=== PATIENT | female | born 1970 | race Caucasian/White ===

== ENCOUNTER 2020-01-13 18:19 | Inpatient (IN) | payer OTHER ==
[2020-01-13 18:29] VITALS: BMI 37.8
[2020-01-13] MEDS ORDERED: ACETAMINOPHEN 1000 MG/100 ML VIAL (NON FORMULARY) IVPB ONE (19:25)
[2020-01-13 20:29] LABS: BASO % 0.6 % (0-2.0); EOS % 1.3 % (0-4.5); HEMATOCRIT 30.5 % (32.4-45.2); HEMOGLOBIN 10.4 GM/dL (10.7-15.3); LYMPH % 16.4 % (8-40); MCH 30.4 pg (25.7-33.7); MEAN CELL VOLUME 89.5 fl (80-96); MEAN PLT VOLUME 8.7 fl (7.5-11.1); MONO % 5.5 % (3.8-10.2); NEUT % 76.2 % (42.8-82.8); PLATELET COUNT 250 K/MM3 (134-434); RBC 3.41 M/mm3 (3.60-5.2); RDW 13.5 % (11.6-15.6); WHITE BLOOD COUNT 8.1 K/mm3 (4.0-10.0)
[2020-01-13 20:45] LABS: INR 0.96 (0.83-1.09); PROTHROMBIN TIME (PATIENT) 11.8 SEC (9.7-13.0)
[2020-01-13 20:48] LABS: ACTIVATED PTT 30.5 SECONDS (25.2-36.5)
[2020-01-13 20:50] LABS: CHLORIDE 111 mmol/L (98-107); SODIUM 142 mmol/L (136-145)
[2020-01-13 20:52] LABS: ALBUMIN 3.5 g/dl (3.4-5.0); ANION GAP 5 MMOL/L (8-16); BLOOD UREA NITROGEN 11.1 mg/dL (7-18); CALCIUM 8.3 mg/dL (8.5-10.1); CO2 25 mmol/L (21-32); GLUCOSE,RANDOM 94 mg/dL (74-106)
[2020-01-13 20:55] LABS: SGOT/AST 15 U/L (15-37); SGPT/ALT 23 U/L (13-61)
[2020-01-13 20:56] LABS: CREATININE 0.7 mg/dL (0.55-1.3)
[2020-01-13 20:57] LABS: BILIRUBIN,TOTAL 0.2 mg/dL (0.2-1)
[2020-01-13 20:58] LABS: ALK PHOS 57 U/L (45-117)
[2020-01-13] MEDS ORDERED: LACTATED RINGERS SOLUTION 1000 ML INFUS.BAG IV ONE (21:58)
[2020-01-13] MEDS ORDERED: PROPOFOL 20 ML ONE (23:22)
[2020-01-13] MEDS ORDERED: MIDAZOLAM HCL 2 MG/2 ML SINGLE DOSE VIAL ONE (23:22)
[2020-01-13] MEDS ORDERED: DEXAMETHASONE SOD PHOSPHATE 4 MG/1 ML VIAL ONE (23:23)
[2020-01-14] MEDS ORDERED: ONDANSETRON 4 MG/2 ML VIAL IVPUSH PRN (00:09)
[2020-01-14] MEDS ORDERED: LACTATED RINGERS SOLUTION 1,000 ML IV SCH (00:15)
[2020-01-14 01:24] VITALS: BP 128/82; PULSE 88; TEMP 98.2
== END 2020-01-14 02:30 | disposition home or self-care (01) | DRG 745 ==
LOC: JER 18:19 → JERBED 21:08 → J6S 01-14 00:54
PROVIDERS: ADMIT Obstetrics & Gynecology; ATTEND Obstetrics & Gynecology
PROC: 0UDB7ZZ Extraction of Endometrium, Via Natural or Artificial Opening (ICD-10-PCS; principal; 2020-01-14)
DX: D25.9 Leiomyoma of uterus, unspecified (principal); R93.89 Abnormal findings on diagnostic imaging of other specified body structures; N88.8 Other specified noninflammatory disorders of cervix uteri; N92.0 Excessive and frequent menstruation with regular cycle
CPT/HCPCS: 36415; 71045-TC-FY; 76830-TC; 80053; 84484; 84702; 85025; 85610; 85730; 86850; 86900; 86901; 88305-TC; 93005; 93010; 94760; 99285-25; C9803; J0131; U0003